=== PATIENT | female | born 1990 | race Caucasian/White ===

== ENCOUNTER 2017-06-27 14:40 | Outpatient (CLI) | payer BC, MEDICAID ==
[2017-06-27 15:09] LABS: APPEARANCE,URINE CLOUDY; BILIRUBIN,URINE NEGATIVE (NEGATIVE); COLOR,URINE YELLOW; GLUCOSE, URINE NEGATIVE (NEGATIVE); KETONES,URINE NEGATIVE (NEGATIVE); LEUKOCYTE ESTERASE,URINE NEGATIVE (NEGATIVE); NITRITE,URINE NEGATIVE (NEGATIVE); PROTEIN,URINE NEGATIVE (NEGATIVE); URINE SPECIFIC GRAVITY 1.009; UROBILINOGEN,URINE NEGATIVE mg/dL (<2.0)
[2017-06-27 15:25] LABS: URINE AMPHETAMINES SCREEN NEGATIVE; URINE BARBITURATES SCREEN NEGATIVE; URINE BENZODIAZEPINES SCREEN NEGATIVE; URINE COCAINE SCREEN NEGATIVE; URINE MARIJUANA (THC) SCREEN NEGATIVE; URINE METHADONE SCREEN NEGATIVE
[2017-06-27 15:29] LABS: ABSOLUTE BASOPHILS # (AUTO) 0.1 10^3/uL (0.0-0.2); ABSOLUTE EOSINOPHILS # (AUTO) 0.1 10^3/uL (0.0-0.6); ABSOLUTE LYMPHOCYTES (AUTO) 2.4 10^3/uL (0.5-4.7); ABSOLUTE MONOCYTES (AUTO) 0.8 10^3/uL (0.1-1.4); ABSOLUTE NEUT (AUTO) 10.1 10^3/uL (1.7-8.2); BASOPHILS % (AUTO) 0.6 % (0-2); EOSINOPHILS % (AUTO) 0.6 % (0-6); HEMATOCRIT 35.2 % (36.0-47.0); HEMOGLOBIN 11.9 g/dL (12.0-15.5); MEAN CORPUSCULAR HEMOGLOBIN 26.9 pg (27.0-33.4); MEAN CORPUSCULAR HGB CONC 33.7 g/dL (32.0-36.0); MEAN CORPUSCULAR VOLUME 80 fl (80-97); MONOCYTES % (AUTO) 6.2 % (3-13); PLATELET COUNT 245 10^3/uL (150-450); RED BLOOD COUNT 4.42 10^6/uL (3.72-5.28); RED CELL DISTRIBUTION WIDTH 13.7 % (11.5-14.0); SEGMENTED NEUTROPHILS % (AUTO) 74.6 % (42-78); TOTAL CELLS COUNTED % (AUTO) 100 %; WHITE BLOOD COUNT 13.5 10^3/uL (4.0-10.5)
[2017-06-27 15:30] LABS: UR PRO/CREAT RATIO RESULT 0.3 mg/mg (0.0-0.2); URINE CREATININE 56.9 mg/dL (16-327); URINE PROTEIN 16.2 mg/dL (<12)
[2017-06-27 15:41] LABS: URINE PHENCYCLIDINE SCREEN NEGATIVE
[2017-06-27 15:41] LABS: ALANINE AMINOTRANSFERASE 22 U/L (9-52); ALBUMIN 3.6 g/dL (3.5-5.0); ALKALINE PHOSPHATASE 98 U/L (38-126); ANION GAP 12 (5-19); ASPARTATE AMINO TRANSFERASE 16 U/L (14-36); BILIRUBIN,DIRECT 0.1 mg/dL (0.0-0.4); BILIRUBIN,TOTAL 0.1 mg/dL (0.2-1.3); BLOOD UREA NITROGEN 10 mg/dL (7-20); CALCIUM 10.1 mg/dL (8.4-10.2); CARBON DIOXIDE 20 mmol/L (22-30); CHLORIDE 106 mmol/L (98-107); GLUCOSE 83 mg/dL (75-110); LDH 357 U/L (313-618); POTASSIUM 4.6 mmol/L (3.6-5.0); SODIUM 138.2 mmol/L (137-145); TOTAL PROTEIN 6.5 g/dL (6.3-8.2); URIC ACID 5.3 mg/dL (2.5-6.2)
[2017-06-27] MEDS ORDERED: ACETAMINOPHEN 325 MG TABLET PO ONE (15:58)
[2017-06-27] MEDS ORDERED: ACETAMINOPHEN 325 MG TABLET ONE ×2 (15:58→16:04)
--- NOTE | 2017-06-27 16:20 | Non Stress Test Report ---
Non Stress Test Datetime Report Generated by CPN: 06/27/2017 16:20 DEMOGRAPHIC EGA NST: 33.1 INDICATION Indication for Study: Chronic Hypertension; Ordered by Provider VITAL SIGNS Temperature - NST: 98.8 Pulse - NST: 101 RESP - NST: 14 NBPSYS NST: 147 NBPDIA NST: 74 MONITORING Monitor Explained: Monitor Explained; Test Explained; Patient Verbalized Understanding Time on Monitor: 06/27/2017 14:56 Time off Monitor: 06/27/2017 16:13 NST Duration: 77 NST INTERVENTIONS NST Interventions: PO Hydration; Reposition Patient Physician Notified NST: Dr Naylor BABY A: [id number] BABY A Movement : Present Contraction Frequency : none FHR Baseline : 130 Accelerations : 15X15 Decelerations : None Variability : Moderate 6-25bpm NST Review: Meets Criteria for Reactive NST NST Review and Verified By : Garret Juarez RN NST Results: Reactive NST REPORT Report Trigger: Send Report
[2017-06-27] MEDS ORDERED: BUTALB/ACETAMINOPHEN/CAFFEINE 1 TAB EACH PO ONE (17:00)
== END 2017-06-27 17:09 | disposition home or self-care (01) ==
LOC: LC 14:40
PROVIDERS: ATTEND Student in an Organized Health Care Education/Training Program
PROC: 4A1HXCZ Monitoring of Products of Conception, Cardiac Rate, External Approach (ICD-10-PCS; principal; 2017-06-27)
DX: O10.913 Unspecified pre-existing hypertension complicating pregnancy, third trimester (principal); Z3A.33 33 weeks gestation of pregnancy
CPT/HCPCS: 36415; 59025; 80053; 80307; 81001; 82570; 83615; 84156; 84550; 85025

== ENCOUNTER 2017-07-04 09:50 | Outpatient (CLI) | payer BC, MEDICAID ==
[2017-07-04 10:29] LABS: APPEARANCE,URINE SLIGHTLY-CLOUDY; BILIRUBIN,URINE NEGATIVE (NEGATIVE); CALCIUM OXALATE CRYSTALS,URINE MODERATE /HPF; COLOR,URINE YELLOW; GLUCOSE, URINE NEGATIVE (NEGATIVE); KETONES,URINE NEGATIVE (NEGATIVE); LEUKOCYTE ESTERASE,URINE NEGATIVE (NEGATIVE); NITRITE,URINE NEGATIVE (NEGATIVE); PROTEIN,URINE 30 mg/dL (NEGATIVE); URINE SPECIFIC GRAVITY 1.025
--- NOTE | 2017-07-04 10:45 | Non Stress Test Report ---
Non Stress Test Datetime Report Generated by CPN: 07/04/2017 10:45 DEMOGRAPHIC EGA NST: 34.1 INDICATION Indication for Study: Chronic Hypertension Indication for Study (NST) Other: Pre-E work/up, non reactive nst in office MONITORING Monitor Explained: Monitor Explained; Test Explained; Patient Verbalized Understanding Time on Monitor: 07/04/2017 10:13 NST INTERVENTIONS NST Interventions: PO Hydration Physician Notified NST: A Duenas CNM BABY A: [id number] BABY A Movement : Present Contraction Frequency : x0 FHR Baseline : 125 Accelerations : 15X15 Decelerations : None Variability : Moderate 6-25bpm NST Review: Meets Criteria for Reactive NST NST Review and Verified By : Dedra Camp RNC NST Results: Reactive NST REPORT Report Trigger: Send Report
[2017-07-04 10:52] LABS: URINE AMPHETAMINES SCREEN NEGATIVE; URINE BARBITURATES SCREEN NEGATIVE; URINE BENZODIAZEPINES SCREEN NEGATIVE; URINE COCAINE SCREEN NEGATIVE; URINE MARIJUANA (THC) SCREEN NEGATIVE; URINE METHADONE SCREEN NEGATIVE; URINE PHENCYCLIDINE SCREEN NEGATIVE
[2017-07-04 10:56] LABS: UR PRO/CREAT RATIO RESULT 0.1 mg/mg (0.0-0.2); URINE CREATININE 202.2 mg/dL (16-327)
[2017-07-04 11:31] LABS: ABSOLUTE EOSINOPHILS # (AUTO) 0.1 10^3/uL (0.0-0.6); ABSOLUTE MONOCYTES (AUTO) 0.7 10^3/uL (0.1-1.4); ABSOLUTE NEUT (AUTO) 9.1 10^3/uL (1.7-8.2); BASOPHILS % (AUTO) 0.3 % (0-2); EOSINOPHILS % (AUTO) 0.6 % (0-6); HEMATOCRIT 35.3 % (36.0-47.0); HEMOGLOBIN 11.7 g/dL (12.0-15.5); LYMPHOCYTES % (AUTO) 17.1 % (13-45); MEAN CORPUSCULAR HEMOGLOBIN 26.5 pg (27.0-33.4); MEAN CORPUSCULAR HGB CONC 33.1 g/dL (32.0-36.0); MEAN CORPUSCULAR VOLUME 80 fl (80-97); MONOCYTES % (AUTO) 5.7 % (3-13); PLATELET COUNT 246 10^3/uL (150-450); RED BLOOD COUNT 4.41 10^6/uL (3.72-5.28); RED CELL DISTRIBUTION WIDTH 13.6 % (11.5-14.0); SEGMENTED NEUTROPHILS % (AUTO) 76.3 % (42-78); TOTAL CELLS COUNTED % (AUTO) 100 %
[2017-07-04 11:50] LABS: ALANINE AMINOTRANSFERASE 25 U/L (9-52); ALBUMIN 3.6 g/dL (3.5-5.0); ALKALINE PHOSPHATASE 102 U/L (38-126); ANION GAP 12 (5-19); ASPARTATE AMINO TRANSFERASE 15 U/L (14-36); BLOOD UREA NITROGEN 8 mg/dL (7-20); CARBON DIOXIDE 23 mmol/L (22-30); CHLORIDE 104 mmol/L (98-107); GLUCOSE 65 mg/dL (75-110); LDH 336 U/L (313-618); POTASSIUM 4.8 mmol/L (3.6-5.0); SODIUM 138.8 mmol/L (137-145); TOTAL PROTEIN 6.4 g/dL (6.3-8.2); URIC ACID 6.2 mg/dL (2.5-6.2)
[2017-07-04 11:53] LABS: BILIRUBIN,TOTAL < 0.1 mg/dL (0.2-1.3)
== END 2017-07-04 12:02 | disposition home or self-care (01) ==
LOC: LC 09:50
PROVIDERS: ATTEND Obstetrics & Gynecology
PROC: 4A1HXCZ Monitoring of Products of Conception, Cardiac Rate, External Approach (ICD-10-PCS; principal; 2017-07-04)
DX: O10.913 Unspecified pre-existing hypertension complicating pregnancy, third trimester (principal); Z3A.34 34 weeks gestation of pregnancy
CPT/HCPCS: 36415; 59025; 80053; 80307; 81001; 82570; 83615; 84156; 84550; 85025

== ENCOUNTER 2017-07-11 09:25 | Outpatient (CLI) | payer BC, MEDICAID ==
[2017-07-11 10:10] LABS: APPEARANCE,URINE SLIGHTLY-CLOUDY; BILIRUBIN,URINE NEGATIVE (NEGATIVE); COLOR,URINE YELLOW; GLUCOSE, URINE NEGATIVE (NEGATIVE); KETONES,URINE NEGATIVE (NEGATIVE); LEUKOCYTE ESTERASE,URINE NEGATIVE (NEGATIVE); NITRITE,URINE NEGATIVE (NEGATIVE); PROTEIN,URINE 30 mg/dL (NEGATIVE); UROBILINOGEN,URINE NEGATIVE mg/dL (<2.0)
[2017-07-11 10:22] LABS: URINE AMPHETAMINES SCREEN NEGATIVE; URINE BARBITURATES SCREEN NEGATIVE; URINE BENZODIAZEPINES SCREEN NEGATIVE; URINE COCAINE SCREEN NEGATIVE; URINE MARIJUANA (THC) SCREEN NEGATIVE; URINE METHADONE SCREEN NEGATIVE; URINE PHENCYCLIDINE SCREEN NEGATIVE
[2017-07-11 10:28] LABS: UR PRO/CREAT RATIO RESULT 0.1 mg/mg (0.0-0.2); URINE CREATININE 149.2 mg/dL (16-327); URINE PROTEIN 13.2 mg/dL (<12)
[2017-07-11] MEDS ORDERED: OXYTOCIN/NORMAL SALINE 0 UNIT/0 ML RTUINJ ONE (10:39)
[2017-07-11] MEDS ORDERED: PROMETHAZINE HCL INJ 25 MG/1 ML VIAL ONE (10:39)
[2017-07-11] MEDS ORDERED: NALBUPHINE HCL INJ 10 MG/1 ML AMPULE ONE (10:39)
[2017-07-11 10:48] LABS: ABSOLUTE LYMPHOCYTES (AUTO) 2.1 10^3/uL (0.5-4.7); ABSOLUTE MONOCYTES (AUTO) 0.7 10^3/uL (0.1-1.4); ABSOLUTE NEUT (AUTO) 9.4 10^3/uL (1.7-8.2); BASOPHILS % (AUTO) 0.3 % (0-2); EOSINOPHILS % (AUTO) 0.4 % (0-6); HEMATOCRIT 34.2 % (36.0-47.0); HEMOGLOBIN 11.4 g/dL (12.0-15.5); LYMPHOCYTES % (AUTO) 16.7 % (13-45); MEAN CORPUSCULAR HEMOGLOBIN 26.7 pg (27.0-33.4); MEAN CORPUSCULAR HGB CONC 33.2 g/dL (32.0-36.0); MEAN CORPUSCULAR VOLUME 80 fl (80-97); MONOCYTES % (AUTO) 5.9 % (3-13); PLATELET COUNT 239 10^3/uL (150-450); RED BLOOD COUNT 4.25 10^6/uL (3.72-5.28); RED CELL DISTRIBUTION WIDTH 13.9 % (11.5-14.0); SEGMENTED NEUTROPHILS % (AUTO) 76.7 % (42-78); TOTAL CELLS COUNTED % (AUTO) 100 %; WHITE BLOOD COUNT 12.3 10^3/uL (4.0-10.5)
[2017-07-11 11:06] LABS: ALANINE AMINOTRANSFERASE 15 U/L (9-52); ALBUMIN 3.4 g/dL (3.5-5.0); ALKALINE PHOSPHATASE 93 U/L (38-126); ANION GAP 10 (5-19); ASPARTATE AMINO TRANSFERASE 13 U/L (14-36); BLOOD UREA NITROGEN 13 mg/dL (7-20); CALCIUM 9.8 mg/dL (8.4-10.2); CARBON DIOXIDE 20 mmol/L (22-30); CHLORIDE 107 mmol/L (98-107); GLUCOSE 80 mg/dL (75-110); LDH 304 U/L (313-618); POTASSIUM 4.3 mmol/L (3.6-5.0); SODIUM 137.4 mmol/L (137-145); TOTAL PROTEIN 6.1 g/dL (6.3-8.2); URIC ACID 6.5 mg/dL (2.5-6.2)
[2017-07-11 11:08] LABS: BILIRUBIN,TOTAL < 0.1 mg/dL (0.2-1.3)
--- NOTE | 2017-07-11 11:17 | Non Stress Test Report ---
Non Stress Test Datetime Report Generated by CPN: 07/11/2017 11:17 DEMOGRAPHIC EGA NST: 35.1 INDICATION Indication for Study: Ordered by Provider Indication for Study (NST) Other: Pre-e workup MONITORING Monitor Explained: Monitor Explained; Test Explained; Patient Verbalized Understanding Time on Monitor: 07/11/2017 09:53 Time off Monitor: 07/11/2017 10:51 NST Duration: 58 NST INTERVENTIONS NST Interventions: PO Hydration Physician Notified NST: J Nicholas CNM BABY A: [id number] BABY A Movement : Present Contraction Frequency : 0 FHR Baseline : 130 Accelerations : 15X15 Decelerations : None Variability : Moderate 6-25bpm NST Review: Meets Criteria for Reactive NST NST Review and Verified By : Lopez Dean RN NST Results: Reactive NST REPORT Report Trigger: Send Report
== END 2017-07-11 11:14 | disposition home or self-care (01) ==
LOC: LC 09:25
PROVIDERS: ATTEND Obstetrics & Gynecology
PROC: 4A1HXCZ Monitoring of Products of Conception, Cardiac Rate, External Approach (ICD-10-PCS; principal; 2017-07-11)
DX: O16.3 Unspecified maternal hypertension, third trimester (principal); Z3A.35 35 weeks gestation of pregnancy
CPT/HCPCS: 36415; 59025; 80053; 80307; 81001; 82570; 83615; 84156; 84550; 85025; J2300; J2550; J2590

== ENCOUNTER 2017-07-13 11:56 | Observation (INO) | payer BC, MEDICAID ==
[2017-07-13 12:39] LABS: APPEARANCE,URINE CLEAR; BILIRUBIN,URINE NEGATIVE (NEGATIVE); COLOR,URINE STRAW; GLUCOSE, URINE NEGATIVE (NEGATIVE); KETONES,URINE NEGATIVE (NEGATIVE); LEUKOCYTE ESTERASE,URINE NEGATIVE (NEGATIVE); NITRITE,URINE NEGATIVE (NEGATIVE); PROTEIN,URINE NEGATIVE (NEGATIVE); URINE SPECIFIC GRAVITY 1.005; UROBILINOGEN,URINE NEGATIVE mg/dL (<2.0)
--- NOTE | 2017-07-13 12:39 | Non Stress Test Report ---
Non Stress Test Datetime Report Generated by CPN: 07/13/2017 12:39 DEMOGRAPHIC EGA NST: 36.2 INDICATION Indication for Study: Ordered by Provider MONITORING Monitor Explained: Monitor Explained; Test Explained; Patient Verbalized Understanding Time on Monitor: 07/13/2017 12:08 Time off Monitor: 07/13/2017 12:35 NST Duration: 27 NST INTERVENTIONS NST Interventions: PO Hydration; Reposition Patient Physician Notified NST: H.Luis, CNM BABY A: [id number] BABY A Movement : Present Contraction Frequency : None FHR Baseline : 130 Accelerations : 15X15 Decelerations : None Variability : Moderate 6-25bpm NST Review: Meets Criteria for Reactive NST NST Review and Verified By : Cayden Castro RNC NST Results: Reactive NST REPORT Report Trigger: Send Report
[2017-07-13 13:01] LABS: URINE AMPHETAMINES SCREEN NEGATIVE; URINE BARBITURATES SCREEN NEGATIVE; URINE BENZODIAZEPINES SCREEN NEGATIVE; URINE COCAINE SCREEN NEGATIVE; URINE MARIJUANA (THC) SCREEN NEGATIVE; URINE METHADONE SCREEN NEGATIVE; URINE PHENCYCLIDINE SCREEN NEGATIVE
[2017-07-13 13:02] LABS: UR PRO/CREAT RATIO RESULT 0.4 mg/mg (0.0-0.2); URINE PROTEIN 16.7 mg/dL (<12)
[2017-07-13 13:11] LABS: ABSOLUTE EOSINOPHILS # (AUTO) 0.1 10^3/uL (0.0-0.6); ABSOLUTE LYMPHOCYTES (AUTO) 1.9 10^3/uL (0.5-4.7); ABSOLUTE MONOCYTES (AUTO) 0.9 10^3/uL (0.1-1.4); ABSOLUTE NEUT (AUTO) 8.6 10^3/uL (1.7-8.2); BASOPHILS % (AUTO) 0.3 % (0-2); EOSINOPHILS % (AUTO) 0.6 % (0-6); HEMATOCRIT 36.4 % (36.0-47.0); HEMOGLOBIN 11.9 g/dL (12.0-15.5); LYMPHOCYTES % (AUTO) 16.5 % (13-45); MEAN CORPUSCULAR HEMOGLOBIN 26.2 pg (27.0-33.4); MEAN CORPUSCULAR HGB CONC 32.6 g/dL (32.0-36.0); MEAN CORPUSCULAR VOLUME 80 fl (80-97); MONOCYTES % (AUTO) 7.5 % (3-13); PLATELET COUNT 233 10^3/uL (150-450); RED BLOOD COUNT 4.53 10^6/uL (3.72-5.28); RED CELL DISTRIBUTION WIDTH 14.1 % (11.5-14.0); SEGMENTED NEUTROPHILS % (AUTO) 75.1 % (42-78); TOTAL CELLS COUNTED % (AUTO) 100 %; WHITE BLOOD COUNT 11.4 10^3/uL (4.0-10.5)
[2017-07-13 13:35] LABS: ALANINE AMINOTRANSFERASE 20 U/L (9-52); ALBUMIN 3.4 g/dL (3.5-5.0); ALKALINE PHOSPHATASE 92 U/L (38-126); ANION GAP 8 (5-19); ASPARTATE AMINO TRANSFERASE 14 U/L (14-36); BILIRUBIN,DIRECT 0.2 mg/dL (0.0-0.4); BILIRUBIN,TOTAL 0.2 mg/dL (0.2-1.3); BLOOD UREA NITROGEN 12 mg/dL (7-20); CALCIUM 10.3 mg/dL (8.4-10.2); CARBON DIOXIDE 22 mmol/L (22-30); CHLORIDE 108 mmol/L (98-107); GLUCOSE 76 mg/dL (75-110); LDH 314 U/L (313-618); POTASSIUM 4.6 mmol/L (3.6-5.0); SODIUM 137.8 mmol/L (137-145); TOTAL PROTEIN 6.5 g/dL (6.3-8.2); URIC ACID 6.8 mg/dL (2.5-6.2)
[2017-07-13] MEDS ORDERED: ZOLPIDEM TARTRATE 5 MG TABLET PO PRN (14:05)
--- NOTE | 2017-07-13 14:10 | Admission Physical ---
Datetime Report Generated by CPN: 07/13/2017 14:09 CURRENT ADMISSION Hx Assessment: The History has been Reviewed and is Current Chief Complaint: Signs/Symptoms Gestational HTN Indication for Induction: Chronic Primary/Essential HTN; PreEclampsia Indication for Induction: Observation/Evaluation Admit Plan: Observation/Evaluation ALLERGIES Medication Allergies: No Medication Allergies: Latex, Natural Rubber (07/11/2017) Latex: Latex Allergies OBSTETRICAL HISTORY EDC: 08/08/2017 00:00 : 1 Para: 0 Term: 0 : 0 SAB: 0 IAB: 0 Livin Gestational Diabetes: No Rh Sensitization: No Incompetent Cervix: No CALI: No Infertility: No ART Treatment: No Uterine Anomaly: No IUGR: No Hx Previous C/S: No Macrosomia: No Hx Loss/Stillborn: No PIH: Unknown Hx : No Placenta Previa/Abruption: No Depression/PP Depression: No PTL/PROM: No Post Hemorrhage: No Current Procedures: Ultrasound Obstetrical History Comments: G1 - Current SEE RECORDS Alcohol: No Marijuana : No Cocaine: No Other Illicit Drugs: No Cigarettes: Never Smoker. 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 Heart Disease: No Hosp/Surgery: No Autoimmune Disorder: No Anesthetic Complications: No Kidney Disease: No Abnormal Pap Smear: No Neuro/Epilepsy: No Psychiatric Disorders: No Other Medical Diseases: No Hepatitis/Liver Disease: No Significant Family History: No Varicosities/Phlebitis: No Trauma/Violence : No Thyroid Dysfunction: No INFECTIOUS HISTORY Gonorrhea: No Genital Herpes: No Chlamydia: No Tuberculosis: No Syphilis: No Hepatitis: No HIV/AIDS Exposure: No Rash or Viral Illness: No HPV: No PHYSICAL EXAM General: Normal HEENT: Normal Neurologic: Normal Thyroid: Normal Heart: Normal Lungs: Normal Breast: Normal Back: Normal Abdomen: Normal Genitourinary Exam: Normal Extremities: Normal DTRs: Normal Pelvic Type: Adequate Vital Signs: Reviewed Details Vital Signs: bp's elevated in the office VAGINAL EXAM Contraction Comments: rare MEMBRANES Membranes: Intact FETUS A EGA: 36.2 Monitoring: External US FHR- Baseline: 135 Variability: Moderate 6-25bpm Accelerations: 15X15 Decelerations: None FHR Category: Category I Admit Comment: Pt presented to the office for wero today with c/o headache not responsive to tylenol, questionable visual changes, ringing in the ears, and nausea, vomiting today. BP in the office has been elevated last 2 weeks. states active fetus, denies ctx, vag bleeding, or lof. Hx chtn no meds. Pt to be 23 hour obs and do 24 hour urine Protein creat ratio today 0.4, Reg diet Ambien for sleep PLANS FOR LABOR AND DELIVERY Labor and Delivery: None Pain Management: Natural Feeding Preference: Both Benefit of Breast Feed Discussed: Yes Circumcision: N/A INFORMED CONSENT Assignment: Moe Macias MD Signature: with User ID: [email or web address] : with User ID: [email or web address]
[2017-07-13] MEDS ORDERED: PROMETHAZINE HCL INJ 25 MG/1 ML VIAL IV ONE (14:18)
[2017-07-13] MEDS ORDERED: PROMETHAZINE HCL INJ 25 MG/1 ML VIAL ONE (14:24)
[2017-07-14 15:21] LABS: ABSOLUTE BASOPHILS # (AUTO) 0.1 10^3/uL (0.0-0.2); ABSOLUTE EOSINOPHILS # (AUTO) 0.1 10^3/uL (0.0-0.6); ABSOLUTE LYMPHOCYTES (AUTO) 2.3 10^3/uL (0.5-4.7); ABSOLUTE MONOCYTES (AUTO) 0.6 10^3/uL (0.1-1.4); ABSOLUTE NEUT (AUTO) 8.6 10^3/uL (1.7-8.2); BASOPHILS % (AUTO) 0.8 % (0-2); EOSINOPHILS % (AUTO) 0.7 % (0-6); HEMATOCRIT 35.9 % (36.0-47.0); HEMOGLOBIN 11.8 g/dL (12.0-15.5); LYMPHOCYTES % (AUTO) 19.7 % (13-45); MEAN CORPUSCULAR HEMOGLOBIN 26.5 pg (27.0-33.4); MEAN CORPUSCULAR HGB CONC 32.7 g/dL (32.0-36.0); MEAN CORPUSCULAR VOLUME 81 fl (80-97); MONOCYTES % (AUTO) 5.4 % (3-13); PLATELET COUNT 224 10^3/uL (150-450); RED BLOOD COUNT 4.44 10^6/uL (3.72-5.28); RED CELL DISTRIBUTION WIDTH 14.1 % (11.5-14.0); SEGMENTED NEUTROPHILS % (AUTO) 73.4 % (42-78); TOTAL CELLS COUNTED % (AUTO) 100 %; WHITE BLOOD COUNT 11.8 10^3/uL (4.0-10.5)
[2017-07-14 15:36] LABS: ALANINE AMINOTRANSFERASE 18 U/L (9-52); ALBUMIN 3.4 g/dL (3.5-5.0); ALKALINE PHOSPHATASE 88 U/L (38-126); ANION GAP 10 (5-19); ASPARTATE AMINO TRANSFERASE 14 U/L (14-36); BILIRUBIN,DIRECT 0.2 mg/dL (0.0-0.4); BILIRUBIN,TOTAL 0.2 mg/dL (0.2-1.3); BLOOD UREA NITROGEN 16 mg/dL (7-20); CALCIUM 10.1 mg/dL (8.4-10.2); CARBON DIOXIDE 20 mmol/L (22-30); CHLORIDE 108 mmol/L (98-107); GLUCOSE 113 mg/dL (75-110); LDH 312 U/L (313-618); POTASSIUM 4.4 mmol/L (3.6-5.0); SODIUM 137.7 mmol/L (137-145); TOTAL PROTEIN 6.5 g/dL (6.3-8.2); URIC ACID 7.6 mg/dL (2.5-6.2)
[2017-07-14 16:17] LABS: 24 HOUR URINE PROTEIN RESULT 95 mg/day (42-225)
[2017-07-14 16:29] VITALS: BP 141/91
--- NOTE | 2017-07-14 17:30 | PDOC DISCHARGE SUMMARY ---
General - Admit/Disc Date/PCP Admission Date/Primary Care Provider: 07/13/17 14:00 KAHLIL MEZA MD Discharge Date: 07/14/17 - Discharge Diagnosis (1) Chronic hypertension Is this a current diagnosis for this admission?: Yes - Additional Information Home Medications: Aspirin [Ecotrin] 1 tab PO DAILY 06/27/17 Pnv,Calcium 72/Iron/Folic Acid [ Plus Tablet] 1 tab PO DAILY 06/27/17 History of Present Illness Patient complains of: denies STOCKTON/RUQ pain/visual changes. BP stable, mild range History of Present Illness: EMMA SOLER is a 27 year old female Physical Exam - Physical Exam Vital Signs: Temp Pulse Resp BP Pulse Ox 98.3 F 72 16 141/91 H 97 07/14/17 16:00 07/14/17 16:00 07/14/17 16:00 07/14/17 16:00 07/14/17 16:00 Intake & Output 07/13/17 07/14/17 07/15/17 06:59 06:59 06:59 Intake Total 600 240 Output Total 450 Balance 600 -210 Weight 120.2 kg Result Laboratory Results: 07/14/17 15:05 07/14/17 15:05 07/14/17 07/14/17 07/14/17 15:05 15:05 15:25 WBC 11.8 H RBC 4.44 Hgb 11.8 L Hct 35.9 L MCV 81 MCH 26.5 L MCHC 32.7 RDW 14.1 H Plt Count 224 Seg Neutrophils % 73.4 Lymphocytes % 19.7 Monocytes % 5.4 Eosinophils % 0.7 Basophils % 0.8 Absolute Neutrophils 8.6 H Absolute Lymphocytes 2.3 Absolute Monocytes 0.6 Absolute Eosinophils 0.1 Absolute Basophils 0.1 Sodium 137.7 Potassium 4.4 Chloride 108 H Carbon Dioxide 20 L Anion Gap 10 BUN 16 Creatinine 0.65 Est GFR ( Amer) > 60 Est GFR (Non-Af Amer) > 60 Glucose 113 H Uric Acid 7.6 H Calcium 10.1 Total Bilirubin 0.2 AST 14 ALT 18 Alkaline Phosphatase 88 Total Protein 6.5 Albumin 3.4 L Ur 24 Hour Volume 1060 Ur Total Protein 24 Hr 95 Plan Discharge Plan: discharge today. c/w dr smith. YOAVNI/NST on monday in office. then IOL . return earlier if sx pre-e. Time Spent: Less than 30 Minutes
== END 2017-07-14 18:00 | disposition home or self-care (01) ==
LOC: LC 11:56 → LR 14:00 → INTOOBSV 14:00 → 2S 15:29
PROVIDERS: ADMIT Obstetrics & Gynecology; ATTEND Obstetrics & Gynecology
PROC: 4A0HXCZ Measurement of Products of Conception, Cardiac Rate, External Approach (ICD-10-PCS; principal; 2017-07-13)
DX: O16.3 Unspecified maternal hypertension, third trimester (principal); O26.893 Other specified pregnancy related conditions, third trimester; R11.2 Nausea with vomiting, unspecified; H93.13 Tinnitus, bilateral; Z3A.36 36 weeks gestation of pregnancy
CPT/HCPCS: 59025; 36415 ×2; 83615 ×2; 84156 ×2; 84550 ×2; 82570; 85025 ×2; 81005; 80053 ×2; 80307; J2550

== ENCOUNTER 2017-07-18 17:54 | Inpatient (IN) | payer BC, MEDICAID ==
[2017-07-18] MEDS ORDERED: RINGERS SOLUTION,LACTATED 300 ML IV ONE (17:58)
[2017-07-18] MEDS ORDERED: DINOPROSTONE 10 MG VAGINAL INSERT.SR PV PRN (17:58)
[2017-07-18] MEDS ORDERED: OXYTOCIN/NORMAL SALINE 20 UNIT/1,000 ML RTUINJ IV PRN (17:58)
[2017-07-18 18:30] LABS: ABSOLUTE BASOPHILS # (AUTO) 0.1 10^3/uL (0.0-0.2); ABSOLUTE EOSINOPHILS # (AUTO) 0.1 10^3/uL (0.0-0.6); ABSOLUTE LYMPHOCYTES (AUTO) 2.6 10^3/uL (0.5-4.7); ABSOLUTE MONOCYTES (AUTO) 0.7 10^3/uL (0.1-1.4); BASOPHILS % (AUTO) 0.6 % (0-2); EOSINOPHILS % (AUTO) 0.7 % (0-6); HEMATOCRIT 36.5 % (36.0-47.0); HEMOGLOBIN 12.3 g/dL (12.0-15.5); MEAN CORPUSCULAR HEMOGLOBIN 26.8 pg (27.0-33.4); MEAN CORPUSCULAR HGB CONC 33.6 g/dL (32.0-36.0); MEAN CORPUSCULAR VOLUME 80 fl (80-97); MONOCYTES % (AUTO) 5.7 % (3-13); PLATELET COUNT 232 10^3/uL (150-450); RED BLOOD COUNT 4.57 10^6/uL (3.72-5.28); RED CELL DISTRIBUTION WIDTH 14.2 % (11.5-14.0); TOTAL CELLS COUNTED % (AUTO) 100 %; WHITE BLOOD COUNT 12.5 10^3/uL (4.0-10.5)
[2017-07-18 18:43] LABS: ALANINE AMINOTRANSFERASE 23 U/L (9-52); ALBUMIN 3.5 g/dL (3.5-5.0); ALKALINE PHOSPHATASE 103 U/L (38-126); ANION GAP 11 (5-19); ASPARTATE AMINO TRANSFERASE 15 U/L (14-36); BILIRUBIN,DIRECT 0.2 mg/dL (0.0-0.4); BILIRUBIN,TOTAL 0.2 mg/dL (0.2-1.3); BLOOD UREA NITROGEN 13 mg/dL (7-20); CALCIUM 10.4 mg/dL (8.4-10.2); CARBON DIOXIDE 20 mmol/L (22-30); CHLORIDE 108 mmol/L (98-107); GLUCOSE 94 mg/dL (75-110); LDH 390 U/L (313-618); POTASSIUM 4.3 mmol/L (3.6-5.0); SODIUM 138.9 mmol/L (137-145); TOTAL PROTEIN 6.8 g/dL (6.3-8.2); URIC ACID 6.7 mg/dL (2.5-6.2)
[2017-07-18] MEDS ORDERED: DINOPROSTONE 10 MG VAGINAL INSERT.SR ONE (18:57)
[2017-07-18] MEDS: RINGERS SOLUTION,LACTATED 1,000 ML IV PRN (19:02)
[2017-07-18 19:12] LABS: APPEARANCE,URINE CLEAR; BILIRUBIN,URINE NEGATIVE (NEGATIVE); COLOR,URINE STRAW; GLUCOSE, URINE NEGATIVE (NEGATIVE); KETONES,URINE NEGATIVE (NEGATIVE); LEUKOCYTE ESTERASE,URINE NEGATIVE (NEGATIVE); NITRITE,URINE NEGATIVE (NEGATIVE); PROTEIN,URINE NEGATIVE (NEGATIVE); URINE SPECIFIC GRAVITY 1.005; UROBILINOGEN,URINE NEGATIVE mg/dL (<2.0)
[2017-07-18 19:23] LABS: URINE AMPHETAMINES SCREEN NEGATIVE; URINE BARBITURATES SCREEN NEGATIVE; URINE BENZODIAZEPINES SCREEN NEGATIVE; URINE COCAINE SCREEN NEGATIVE; URINE MARIJUANA (THC) SCREEN NEGATIVE; URINE METHADONE SCREEN NEGATIVE; URINE PHENCYCLIDINE SCREEN NEGATIVE
--- NOTE | 2017-07-18 19:26 | Admission Physical ---
Datetime Report Generated by CPN: 07/18/2017 19:26 CURRENT ADMISSION Hx Assessment: The History has been Reviewed and is Current Chief Complaint: Other Chief Complaint Other: Induction Indication for Induction: Chronic Secondary HTN (Specify Cause) Admit Impression : Term, Intrauterine ; Induction of Labor Admit Plan: Admit to Unit; Initiate Labor Induction Protocol ALLERGIES Medication Allergies: No Medication Allergies: Latex, Natural Rubber (07/18/2017) Latex: Latex Allergies OBSTETRICAL HISTORY EDC: 08/08/2017 00:00 : 1 Para: 0 Term: 0 : 0 SAB: 0 IAB: 0 Livin Gestational Diabetes: No Rh Sensitization: No Incompetent Cervix: No CALI: No Infertility: No ART Treatment: No Uterine Anomaly: No IUGR: No Hx Previous C/S: No Macrosomia: No Hx Loss/Stillborn: No PIH: Unknown Hx : No Placenta Previa/Abruption: No Depression/PP Depression: No PTL/PROM: No Post Hemorrhage: No Current Procedures: Ultrasound Obstetrical History Comments: G1 - Current SEE RECORDS Alcohol: No Marijuana : No Cocaine: No Other Illicit Drugs: No Cigarettes: Never Smoker. 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 Heart Disease: No Hosp/Surgery: No Autoimmune Disorder: No Anesthetic Complications: No Kidney Disease: No Abnormal Pap Smear: No Neuro/Epilepsy: No Psychiatric Disorders: No Other Medical Diseases: No Hepatitis/Liver Disease: No Significant Family History: No Varicosities/Phlebitis: No Trauma/Violence : No Thyroid Dysfunction: No INFECTIOUS HISTORY Gonorrhea: No Genital Herpes: No Chlamydia: No Tuberculosis: No Syphilis: No Hepatitis: No HIV/AIDS Exposure: No Rash or Viral Illness: No HPV: No PHYSICAL EXAM General: Normal HEENT: Normal Neurologic: Normal Thyroid: Normal Heart: Normal Lungs: Normal Breast: Deferred Back: Normal Abdomen: Normal Genitourinary Exam: Normal Extremities: Normal DTRs: Normal Pelvic Type: Adequate Vital Signs: Reviewed Details Vital Signs: bp's elevated in the office VAGINAL EXAM Dilatation: 2 Contraction Comments: rare MEMBRANES Pooling: Negative Membranes: Intact FETUS A EGA: 37.0 Monitoring: External US FHR- Baseline: 120 Variability: Moderate 6-25bpm Accelerations: 10X10 Decelerations: None FHR Category: Category I Admit Comment: Plan cervadil PLANS FOR LABOR AND DELIVERY Labor and Delivery: None Pain Management: Natural; Epidural Feeding Preference: Both Benefit of Breast Feed Discussed: Yes Circumcision: N/A INFORMED CONSENT Assignment: Moe Macias MD Signature: with User ID: Emily : with User ID: Emily
--- NOTE | 2017-07-18 21:36 | Warning Signs in Babies ---
VOD Warning Signs Datetime Report Generated by [facility]: 07/18/2017 21:35 VOD#608 -Warning Signs in Babies: Viewed with Parent(s)/Family (06/27/2017 14:53:Isaias Ferrari RN)
[2017-07-19] MEDS: RINGERS SOLUTION,LACTATED 1,000 ML IV PRN (03:05)
[2017-07-19] MEDS ORDERED: LIDOCAINE 1% INJ-PF (10 MG/ML) 30 ML SDV ONE (07:40)
[2017-07-19] MEDS ORDERED: MISOPROSTOL 0.2 MG TABLET ONE (07:40)
[2017-07-19] MEDS ORDERED: OXYTOCIN/NORMAL SALINE 20 UNIT/1,000 ML RTUINJ ONE (07:40)
[2017-07-19] MEDS ORDERED: MISOPROSTOL 0.1 MG TABLET ONE (08:24)
--- NOTE | 2017-07-19 16:37 | L&D Progress Notes ---
PROGRESS NOTES Datetime Report Generated by CPN: 07/19/2017 16:37 PROGRESS NOTE Impression: Reassuring Heart Rate Procedures: Sterile Vag Exam Plan: Continue Present Management Vital Signs : Reviewed; Within Normal Limits Comment: SVE closed/HIGH/post. Pitocin infusing at 14 milliunits, patient states pain at 5/5. Seeing some spots, dizzy. FBS 67. Given popsicle and in more tilted position. Will d/c pitocin in about 1 hr. and insert Cervidil later. VAGINAL EXAM Dilatation: closed Dilatation: 2 Contractions: rare MEMBRANES Pooling: Negative Membranes: Intact Membranes: Intact Membranes: Intact FETUS A Monitoring: External US : 37.1 : 37.0 SIGNATURE SIGNATURE: ,[id number];,[id number];,[id number];,[id number] SIGNATURE: [id number];,[id number] SIGNATURE: ,[id number] SIGNATURE: 13,[id number] SIGNATURE: 14,[id number] SIGNATURE: 14,[id number] SIGNATURE: 14,[id number] SIGNATURE: 14,[id number] Assignment: Alexander Bhandari MD Signature: with User ID: [email or web address] : with User ID: [email or web address] : I personally evaluated and examined the patient in conjunction with the MLP and agree with the assessment, treatment plan and disposition.
[2017-07-19] MEDS ORDERED: CEFAZOLIN 2 GM/D5W RTU 0 GM/0 ML RTUPB IV ONE (19:36)
[2017-07-19] MEDS ORDERED: CITRIC ACID/SODIUM CITRATE ORAL SOLN 15 ML UDCUP ONE (19:36)
[2017-07-19] MEDS ORDERED: DINOPROSTONE 10 MG VAGINAL INSERT.SR ONE (20:15)
[2017-07-20] MEDS: RINGERS SOLUTION,LACTATED 1,000 ML IV PRN ×4 (01:34→18:14)
[2017-07-20] MEDS ORDERED: OXYTOCIN/NORMAL SALINE 20 UNIT/1,000 ML RTUINJ ONE (06:45)
[2017-07-20] MEDS ORDERED: NALBUPHINE HCL INJ 10 MG/1 ML AMPULE ONE (09:17)
[2017-07-20] MEDS ORDERED: NALBUPHINE HCL INJ 10 MG/1 ML AMPULE INJ ONE (09:23)
[2017-07-20 09:47] LABS: ABSOLUTE BASOPHILS # (AUTO) 0.2 10^3/uL (0.0-0.2); ABSOLUTE EOSINOPHILS # (AUTO) 0.1 10^3/uL (0.0-0.6); ABSOLUTE LYMPHOCYTES (AUTO) 1.8 10^3/uL (0.5-4.7); ABSOLUTE MONOCYTES (AUTO) 0.6 10^3/uL (0.1-1.4); ABSOLUTE NEUT (AUTO) 9.3 10^3/uL (1.7-8.2); BASOPHILS % (AUTO) 1.7 % (0-2); EOSINOPHILS % (AUTO) 0.7 % (0-6); HEMATOCRIT 35.5 % (36.0-47.0); HEMOGLOBIN 11.8 g/dL (12.0-15.5); LYMPHOCYTES % (AUTO) 14.8 % (13-45); MEAN CORPUSCULAR HEMOGLOBIN 26.8 pg (27.0-33.4); MEAN CORPUSCULAR HGB CONC 33.2 g/dL (32.0-36.0); MEAN CORPUSCULAR VOLUME 81 fl (80-97); MONOCYTES % (AUTO) 4.8 % (3-13); PLATELET COUNT 216 10^3/uL (150-450); RED CELL DISTRIBUTION WIDTH 14.2 % (11.5-14.0); TOTAL CELLS COUNTED % (AUTO) 100 %
[2017-07-20 10:02] LABS: ALANINE AMINOTRANSFERASE 26 U/L (9-52); ALBUMIN 3.2 g/dL (3.5-5.0); ALKALINE PHOSPHATASE 96 U/L (38-126); ANION GAP 12 (5-19); ASPARTATE AMINO TRANSFERASE 16 U/L (14-36); BILIRUBIN,DIRECT 0.1 mg/dL (0.0-0.4); BILIRUBIN,TOTAL 0.3 mg/dL (0.2-1.3); BLOOD UREA NITROGEN 9 mg/dL (7-20); CARBON DIOXIDE 20 mmol/L (22-30); CHLORIDE 108 mmol/L (98-107); GLUCOSE 64 mg/dL (75-110); LDH 424 U/L (313-618); POTASSIUM 4.2 mmol/L (3.6-5.0); SODIUM 140.4 mmol/L (137-145); TOTAL PROTEIN 6.8 g/dL (6.3-8.2); URIC ACID 7.7 mg/dL (2.5-6.2)
[2017-07-20 10:03] LABS: CALCIUM 9.4 mg/dL (8.4-10.2)
--- NOTE | 2017-07-20 13:18 | L&D Progress Notes ---
PROGRESS NOTES Datetime Report Generated by CPN: 07/20/2017 13:18 PROGRESS NOTE Impression: Normal Progression of Labor Procedures: Sterile Vag Exam Plan: Continue Present Management; Induction; Cervical Ripening Informed Consent Obtained: Vaginal Delivery; Risks, Benefits and Alternatives Discussed Vital Signs : Reviewed; Within Normal Limits Comment: Pt recieved Cervidil x 2 days and reportedly was closed. Cvx very anterior 1-2/50/-3. Cooks catheter placed easily. Begin pitocin. VAGINAL EXAM Dilatation: 1 Effacement: 50 Station: -3 Contractions: irreg FETUS A FHR - Baseline: 120 Monitoring: External US Variability: Moderate 6-25bpm Accelerations: 15X15 Decelerations: None FHR Category: Category I SIGNATURE Signature: with User ID: [email or web address]
--- NOTE | 2017-07-20 14:53 | L&D Progress Notes ---
PROGRESS NOTES Datetime Report Generated by CPN: 07/20/2017 14:53 PROGRESS NOTE Impression: Normal Progression of Labor Procedures: Sterile Vag Exam Plan: Continue Present Management; Induction; Cervical Ripening Informed Consent Obtained: Vaginal Delivery; Risks, Benefits and Alternatives Discussed Vital Signs : Reviewed; Within Normal Limits Comment: Cooks catheter evaluated and noted to be in vagina. Cooks catheter removed. cvx 4-5/50/BB. Pt desires epidural. When epidural placed will attempt to AROM. VAGINAL EXAM Dilatation: 4 Effacement: 50 Station: BB Contractions: irreg FETUS A FHR - Baseline: 125 Variability: Moderate 6-25bpm Accelerations: 15X15 Decelerations: None FHR Category: Category I FETUS C SIGNATURE: ,[id number];,[id number];,[id number];,[id number] SIGNATURE: ,[id number];,[id number];,[id number];,[id number] Signature: with User ID: [email or web address]
[2017-07-20] MEDS ORDERED: EPHEDRINE SULFATE INJ 50 MG/1 ML AMPULE ONE (15:56)
[2017-07-20] MEDS ORDERED: FENTANYL/BUPIVACAINE/NS/PF 200 MCG/100 ML RTUINJ EPI ONE (15:57)
[2017-07-20] MEDS ORDERED: BUPIVACAINE HCL 0.25 % INJ/PF (2.5 MG/1 ML) 30 ML VIAL ONE (15:57)
--- NOTE | 2017-07-20 16:45 | L&D Progress Notes ---
PROGRESS NOTES Datetime Report Generated by CPN: 07/20/2017 16:44 PROGRESS NOTE Impression: Normal Progression of Labor; Non-reassuring Heart Rate Procedures: Artificial ROM; Intrauterine Pressure Catheter; Scalp Electrode; Sterile Vag Exam Plan: Continue Present Management; Induction Vital Signs : Reviewed Vital Signs Comments: BP drop after epidural Comment: prolonged decel wilma to 60 with BP drop after epidural, 2 doses 5mg ephedrine given and AROM for clear fluid. IUPC and FSE placed, decel resolved. pitocin at 20mu/min. P:continue pitocin IOL. anticipate VAGINAL EXAM Dilatation: 6 Effacement: 50 Station: -2 Contractions: q2mins MEMBRANES Membranes: Ruptured Amniotic Fluid Color: Clear FETUS A FHR - Baseline: 125 Variability: Moderate 6-25bpm Accelerations: 15X15 Decelerations: Early; Prolonged FHR Category: Category II FETUS C SIGNATURE: 13,[id number];14,[id number];10,[id number];27,[id number] Assignment: Maylin Naylor MD Signature: with User ID: [email or web address] : with User ID: [email or web address]
--- NOTE | 2017-07-20 19:33 | L&D Progress Notes ---
PROGRESS NOTES Datetime Report Generated by CPN: 07/20/2017 19:32 PROGRESS NOTE Impression: Normal Progression of Labor Procedures: Sterile Vag Exam Plan: Continue Present Management; Induction Informed Consent Obtained: Vaginal Delivery; Risks, Benefits and Alternatives Discussed Vital Signs : Reviewed; Within Normal Limits Comment: cvx 7/90/0. Pt making progress. Continue with present management. Anticipate . VAGINAL EXAM Dilatation: 7 Effacement: 90 Station: 0 Contractions: q 1-2 FETUS A FHR - Baseline: 130 Monitoring: External US Variability: Moderate 6-25bpm Accelerations: 15X15 Decelerations: Early FHR Category: Category I FETUS C SIGNATURE: 10,[id number];14,[id number];13,[id number];27,[id number] Signature: with User ID: [email or web address]
[2017-07-20] MEDS ORDERED: HYDRALAZINE HCL INJ/PF 20 MG/1 ML SDV ONE (20:26)
--- NOTE | 2017-07-20 21:45 | L&D Progress Notes ---
PROGRESS NOTES Datetime Report Generated by CPN: 07/20/2017 21:45 PROGRESS NOTE Impression: Normal Progression of Labor Procedures: Sterile Vag Exam Plan: Continue Present Management; Induction Informed Consent Obtained: Vaginal Delivery; Risks, Benefits and Alternatives Discussed Vital Signs : Reviewed; Within Normal Limits Comment: pt feeling pressure b/w ctx. cvx AL/100/+1. Anticipate . Pt return to high fowlers. VAGINAL EXAM Dilatation: 9 Effacement: 100 Station: 1 FETUS A FHR - Baseline: 120 Monitoring: External US Accelerations: 15X15 Decelerations: Early; Variable FHR Category: Category I FETUS C SIGNATURE: 13,[id number];14,[id number];10,[id number];27,[id number] Signature: with User ID: [email or web address]
[2017-07-20] MEDS ORDERED: PROMETHAZINE HCL 25 MG TABLET PO PRN (23:45)
[2017-07-20] MEDS ORDERED: DIPHENHYDRAMINE HCL 25 MG CAPSULE PO PRN (23:45)
[2017-07-20] MEDS ORDERED: GLYCERIN/WITCH HAZEL LEAF 1 EACH MED..PAD TP PRN (23:45)
[2017-07-20] MEDS ORDERED: ACETAMINOPHEN WITH CODEINE #3 TABLET PO PRN ×2 (23:45)
[2017-07-20] MEDS ORDERED: PROMETHAZINE HCL 25 MG SUPP.RECT PR PRN (23:45)
[2017-07-20] MEDS ORDERED: PROMETHAZINE HCL INJ 25 MG/1 ML VIAL IV PRN (23:45)
[2017-07-20] MEDS ORDERED: PSEUDOEPHEDRINE HCL 30 MG TABLET PO PRN (23:45)
[2017-07-20] MEDS ORDERED: OXYTOCIN/NORMAL SALINE 20 UNIT/1,000 ML RTUINJ IV PRN (23:45)
[2017-07-20] MEDS ORDERED: BENZOCAINE/MENTHOL AEROSOL SPRAY 56 ML TOP PRN (23:45)
[2017-07-20] MEDS ORDERED: MEASLES,MUMPS&RUBELLA VACC/PF 0.5 ML VIAL SUBCUT PRN (23:45)
[2017-07-20] MEDS ORDERED: DIBUCAINE 1% OINTMENT 28 GM TP PRN (23:45)
[2017-07-20] MEDS ORDERED: ACETAMINOPHEN 325 MG TABLET PO PRN (23:45)
[2017-07-20] MEDS ORDERED: NA PHOS,M-B/NA PHOS,DI-BA (ADULT) 133 ML ENEMA PR PRN (23:45)
[2017-07-20] MEDS ORDERED: ZOLPIDEM TARTRATE 5 MG TABLET PO PRN (23:45)
[2017-07-20] MEDS ORDERED: MAGNESIUM HYDROXIDE SUSP 30 ML UDCUP PO PRN (23:45)
[2017-07-21] MEDS ORDERED: OXYTOCIN/NORMAL SALINE 0 UNIT/0 ML RTUINJ ONE (00:22)
[2017-07-21] MEDS ORDERED: ACETAMINOPHEN 325 MG TABLET ONE (01:44)
--- NOTE | 2017-07-21 02:00 | Delivery Summary ---
Del Sum A-C Datetime Report Generated by CPN: 07/21/2017 01:59 DELIVERY PERSONNEL DELIVERY PERSONNEL: [id number] Delivery Doctor:: Maylin Naylor MD Labor and Delivery Nurse:: Felicitas Bennett RNhousing director Nurse:: Destiny Han RN Transit Driver/TUBE WINDER HAND: Gabrielle HinesLUCILLE gregorioA MATERNAL INFORMATION Delivery Anesthesia: Epidural Medications After Delivery: Pitocin Bolus-Please Comment; Pitocin Drip 20 Units/1000ml NSS Estimated Blood Loss (ml): 150 Maternal Complications: None Provider Comments: VFI delivered in [place] presentation. Tight nuchal cord delivered through. Shoulders and body delivered without difficulty. Cord doubly clamped and cut and infant to maternal abd for NRP. Placenta delivered intact spontaneously. FF at U. Good hemostasis after repair. Apgars 8/8. Weight pending. Mother and baby stable upon provider leaving the room. LABOR SUMMARY EDC: 08/08/2017 00:00 No. Babies in Womb: 1 Attempted: No Labor Anesthesia: Epidural LABOR INFORMATION Reason for Induction: Chronic Primary/Essential HTN Onset of Labor: 07/20/2017 16:21 Complete Dilatation: 07/20/2017 22:51 Cervical Ripening Agents: Cervidil Oxytocin: Induction Group B Beta Strep: Negative Antibiotics # of Doses: 0 Steroids Given: None Reason Steroids Not Administered: Not Applicable MEMBRANES Membranes Rupture Method: Artificial Rupture of Membranes: 07/20/2017 16:22 Length of Rupture (hr): 7.18 Amniotic Fluid Color: Clear Amniotic Fluid Amount: Large Amniotic Fluid Odor: Normal STAGES OF LABOR Stage 1 hr: 6 Stage 1 min: 30 Stage 2 hr: 0 Stage 2 min: 42 Stage 3 hr: 0 Stage 3 min: 3 Total Time in Labor hr: 7 Total Time in Labor min: 15 VAGINAL DELIVERY Episiotomy: None Laceration #1: Perineal Laceration Extension #1: First Degree Laceration Repair: Yes Laceration Repair Note: 1st degree perineal laceartion repaired in usual fashion Sponge Count Correct: Yes Sharps Count Correct: Yes CSECTION DELIVERY Primary Indication: N/A Secondary Indication: N/A CSection Incidence: N/A Labor: N/A Elective: N/A CSection Incision: N/A BABY A INFORMATION Delivery Date/Time: 07/20/2017 23:33 Method of Delivery: Vaginal Born in Route : No : N/A Forceps: N/A Vacuum Extraction: N/A Shoulder Dystocia : No PRESENTATION/POSITION BABY A Presentation: Cephalic Cephalic Presentation: Vertex Vertex Position: Left Occipital Anterior Breech Presentation: N/A PLACENTA INFORMATION BABY A Placenta Delivery Time : 07/20/2017 23:36 Placenta Method of Delivery: Spontaneous Placenta Status: Delivered SCORES BABY A Heart Rate 1 min: >100 bpm Resp Effort 1 min: Good Cry Reflex Irritability 1 min: Cough or Sneeze or Pulls Away Muscle Tone 1 min: Some Flexion of Extremities Color 1 min: Body [place], Extremities Blue Resuscitation Effort 1 min: Tactile Stimulation SCORE 1 MIN: 8 Heart Rate 5 min: >100 bpm Resp Effort 5 min: Good Cry Reflex Irritability 5 min: Cough or Sneeze or Pulls Away Muscle Tone 5 min: Some Flexion of Extremities Color 5 min: Body [place], Extremities Blue Resuscitation Effort 5 min: Tactile Stimulation SCORE 5 MIN: 8 INFANT INFORMATION BABY A Gestational Age at Delivery: 37.2 Gestational Status: Early Term- 37- 38.6 Weeks Infant Outcome : Liveborn Condition : Stable Infant Sex: Female IDENTIFICATION BABY A Infant Verification Date/Time: 07/20/2017 23:39 ID Band Number: [id number] RN Verifying Infant: B Pierre, RN Additional Verifying Personnel: D Monroe, TUBE WINDER HAND/US WEIGHT/LENGTH BABY A Infant Birthweight (gm): 2430 Weight (lb): 5 Weight (oz): 6 Length (in): 18.50 Length (cm): 46.99 CORD INFORMATION BABY A No. Cord Vessels: 3 Nuchal Cord : Around Neck x1, Tight Cord Blood Taken: Yes-For Eval (Mom's Blood Type - or O+) Infant Suction: Mouth; Nose ASSESSMENT BABY A Complications: Multiple Variable Decels Skin to Skin: Yes Care By: SLattibeaudier RN Transferred To: Remains with Mother BABY B INFORMATION : N/A SIGNATURES Signature: with User ID: [email or web address] : I was personally available for consultation and serving as supervising physician for the MLP. : I personally evaluated and examined the patient in conjunction with the MLP and agree with the assessment, treatment plan and disposition.
[2017-07-21] MEDS: IBUPROFEN 800 MG TABLET PO SCH ×3 (06:14→21:23)
[2017-07-21 07:37] LABS: HEMOGLOBIN 10.8 g/dL (12.0-15.5); MEAN CORPUSCULAR HEMOGLOBIN 26.6 pg (27.0-33.4); MEAN CORPUSCULAR HGB CONC 32.9 g/dL (32.0-36.0); MEAN CORPUSCULAR VOLUME 81 fl (80-97); PLATELET COUNT 208 10^3/uL (150-450); RED BLOOD COUNT 4.08 10^6/uL (3.72-5.28); RED CELL DISTRIBUTION WIDTH 14.3 % (11.5-14.0); WHITE BLOOD COUNT 23.5 10^3/uL (4.0-10.5)
[2017-07-21] MEDS: SENNOSIDES/DOCUSATE 8.6-50 MG 1 EACH TABLET PO SCH (09:18)
[2017-07-21] MEDS: DOCUSATE SODIUM 100 MG CAPSULE PO SCH ×2 (09:18→18:40)
[2017-07-21] MEDS: PRENATAL VITAMIN W DHA CAPSULE PO SCH (09:19)
[2017-07-21] MEDS: FERROUS SULFATE 325 MG TABLET PO SCH ×2 (09:19→18:40)
[2017-07-21] MEDS: FAMOTIDINE 20 MG TABLET PO SCH ×2 (11:34→21:23)
--- NOTE | 2017-07-21 13:21 | PDOC PROGRESS REPORT ---
Subjective-OB Progress Note for:: 07/21/17 Subjective: no complaints Physical Exam (OB) Vital Signs: Temp Pulse Resp BP Pulse Ox 98.0 F 74 16 113/71 97 07/21/17 08:21 07/21/17 08:21 07/21/17 08:21 07/21/17 08:21 07/21/17 08:21 - PIH/Pre-Eclampsia Headache: Absent Epigastric Pain: No Visual Changes: No - Lochia Lochia Amount: Scant < 10 ml Lochia Color: Rubra/Red - Abdomen Description: Soft Hernia Present: No Flatus Presence: Present Fundal Description: Firm, Midline Fundal Height: u/u - u/2 - Respiratory Breath sounds: Clear - Extremities Calf: Normal Objective-Diagnostic Laboratory: 07/21/17 07:02 07/20/17 09:15 07/21/17 07:02 WBC 23.5 H RBC 4.08 Hgb 10.8 L Hct 33.0 L MCV 81 MCH 26.6 L MCHC 32.9 RDW 14.3 H Plt Count 208 Assessment and Plan(PN) - Assessment and Plan (1) Vaginal delivery Is this a current diagnosis for this admission?: Yes (2) Chronic hypertension Is this a current diagnosis for this admission?: Yes - Time Spent with Patient Time with patient: Less than 15 minutes Medications reviewed and adjusted accordingly: Yes - Disposition Anticipated Discharge: Home Within: within 48 hours
[2017-07-22] MEDS: IBUPROFEN 800 MG TABLET PO SCH (05:58)
[2017-07-22 08:42] VITALS: BP 127/85
[2017-07-22] MEDS: SENNOSIDES/DOCUSATE 8.6-50 MG 1 EACH TABLET PO SCH (09:56)
[2017-07-22] MEDS: FERROUS SULFATE 325 MG TABLET PO SCH (09:56)
[2017-07-22] MEDS: PRENATAL VITAMIN W DHA CAPSULE PO SCH (09:56)
[2017-07-22] MEDS: FAMOTIDINE 20 MG TABLET PO SCH (09:56)
[2017-07-22] MEDS: DOCUSATE SODIUM 100 MG CAPSULE PO SCH (09:56)
--- NOTE | 2017-07-22 10:21 | PDOC DISCHARGE SUMMARY ---
Final Diagnosis Discharge Date: 07/22/17 - Final Diagnosis (1) Vaginal delivery Is this a current diagnosis for this admission?: Yes (2) Chronic hypertension Is this a current diagnosis for this admission?: Yes Discharge Data - Discharge Medication Prescriptions: Docusate Sodium [Colace 100 mg Capsule] 100 mg PO BID #60 capsule Ibuprofen [Motrin 800 mg Tablet] 800 mg PO Q8 #60 tablet Home Medications: Pnv,Calcium 72/Iron/Folic Acid [ Plus Tablet] 1 tab PO DAILY 06/27/17 Docusate Sodium [Colace 100 mg Capsule] 100 mg PO BID #60 capsule 07/22/17 Ibuprofen [Motrin 800 mg Tablet] 800 mg PO Q8 #60 tablet 07/22/17 Gestational Age: 37.2 Reason(s) for Admission: Onset of Labor, PIH Procedures: NST Intrapartum Procedure(s): Spontaneous Vaginal Delivery Complication(s): Laceration-Perineal Laceration-Degree: 1st - Data Baby 1 Female at 1 minute: 8 at 5 minutes: 8 Weight: 2430 kg Home with Mother: Yes Complications: No - Diagnosis Test Laboratory: Temp Pulse Resp BP Pulse Ox 98.4 F 79 18 127/85 H 98 07/22/17 07:52 07/22/17 07:52 07/22/17 07:52 07/22/17 07:52 07/22/17 07:52 07/18/17 07/18/17 07/20/17 18:05 18:15 09:15 RBC 4.57 4.40 Hgb 12.3 11.8 L Hct 36.5 35.5 L Urine Opiates Screen NEGATIVE 07/21/17 07:02 RBC 4.08 Hgb 10.8 L Hct 33.0 L Urine Opiates Screen - Discharge information/Instructions Discharge Activity: Activity As Tolerated, No Lifting Over 10 Pounds, Pelvic Rest, No tub bath Discharge Diet: Regular Disposition: HOME, SELF-CARE Follow up with: [facility] in: 1, Weeks
== END 2017-07-22 11:43 | disposition home or self-care (01) | DRG 774 ==
LOC: LR 17:54 → 2S 07-21 02:18 → EDSTATUS 08-09 17:50
PROVIDERS: ADMIT Student in an Organized Health Care Education/Training Program; ATTEND Student in an Organized Health Care Education/Training Program
PROC: 3E0P7VZ Introduction of Hormone into Female Reproductive, Via Natural or Artificial Opening (ICD-10-PCS; 2017-07-19)
PROC: 3E033VJ Introduction of Other Hormone into Peripheral Vein, Percutaneous Approach (ICD-10-PCS; 2017-07-19)
PROC: 10E0XZZ Delivery of Products of Conception, External Approach (ICD-10-PCS; principal; 2017-07-20)
PROC: 0HQ9XZZ Repair Perineum Skin, External Approach (ICD-10-PCS; 2017-07-20)
PROC: 10H07YZ Insertion of Other Device into Products of Conception, Via Natural or Artificial Opening (ICD-10-PCS; 2017-07-20)
PROC: 4A1H7CZ Monitoring of Products of Conception, Cardiac Rate, Via Natural or Artificial Opening (ICD-10-PCS; 2017-07-20)
DX: O10.02 Pre-existing essential hypertension complicating childbirth (principal); Z68.42 Body mass index [BMI] 45.0-49.9, adult; O69.1XX0 Labor and delivery complicated by cord around neck, with compression, not applicable or unspecified; O76 Abnormality in fetal heart rate and rhythm complicating labor and delivery; O70.0 First degree perineal laceration during delivery; O99.214 Obesity complicating childbirth; E66.9 Obesity, unspecified; Z37.0 Single live birth; Z91.040 Latex allergy status; Z3A.37 37 weeks gestation of pregnancy
CPT/HCPCS: 36415; 80053; 80307; 81001; 82962; 83615; 84550; 85025; 85027; 86592; 86850; 86900; 86901; 88307; 94760; C1726; J0360; J0690; J2300; J2590; J3490

== ENCOUNTER 2017-09-28 08:46 | Day surgery (SDC) | payer BC, MEDICAID ==
[2017-09-20 12:43] LABS: HEMATOCRIT 38.7 % (36.0-47.0); HEMOGLOBIN 12.8 g/dL (12.0-15.5); MEAN CORPUSCULAR HEMOGLOBIN 25.7 pg (27.0-33.4); MEAN CORPUSCULAR VOLUME 78 fl (80-97); PLATELET COUNT 314 10^3/uL (150-450); RED BLOOD COUNT 4.97 10^6/uL (3.72-5.28); RED CELL DISTRIBUTION WIDTH 14.3 % (11.5-14.0); WHITE BLOOD COUNT 10.4 10^3/uL (4.0-10.5)
[2017-09-20 12:59] LABS: APPEARANCE,URINE CLOUDY; BILIRUBIN,URINE NEGATIVE (NEGATIVE); COLOR,URINE YELLOW; GLUCOSE, URINE NEGATIVE (NEGATIVE); KETONES,URINE NEGATIVE (NEGATIVE); LEUKOCYTE ESTERASE,URINE TRACE (NEGATIVE); NITRITE,URINE NEGATIVE (NEGATIVE); PROTEIN,URINE 100 mg/dL (NEGATIVE); URINE SPECIFIC GRAVITY 1.023; UROBILINOGEN,URINE NEGATIVE mg/dL (<2.0)
[~2017-09-28 08:46] MED LIST: ACETAMINOPHEN 325 MG TABLET PO PRN; CEFAZOLIN 2 GM/D5W RTU 2 GM/50 ML RTUPB IV PRN; DEXAMETHASONE SOD PHOSPHATE INJ 4 MG/1 ML VIAL ONE; GLYCOPYRROLATE INJ 0.4 MG/2 ML VIAL ONE; LACTATED RINGERS 1000 ML IV PRN; LIDOCAINE 0.5% INJ-PF (5 MG/ML) 50 ML SDV SUBCUT PRN; NEOSTIGMINE METHYLSULFATE 10 MG/10 ML VIAL ONE; ONDANSETRON HCL INJ/PF 4 MG/2 ML SDV ONE; ROCURONIUM BROMIDE INJ 50 MG/5 ML VIAL IV ONE; SUCCINYLCHOLINE CHLORIDE INJ 200 MG/10 ML VIAL ONE
[2017-09-28] MEDS ORDERED: FENTANYL CITRATE INJ/PF 250 MCG/5 ML AMPULE ONE (10:44)
[2017-09-28] MEDS ORDERED: MIDAZOLAM 2 MG/2 ML INJ ONE (10:44)
[2017-09-28] MEDS ORDERED: PROPOFOL INJ 200 MG/20 ML VIAL IV ONE (10:44)
[2017-09-28] MEDS ORDERED: HYDROMORPHONE HCL INJ/PF 2 MG/ML AMPULE ONE (10:45)
[2017-09-28] MEDS ORDERED: ACETAMINOPHEN 1,000 MG/100 ML RTUPB IV ONE (10:45)
[2017-09-28] MEDS ORDERED: FENTANYL CITRATE INJ/PF 100 MCG/2 ML AMPUL IV PRN ×3 (11:38)
[2017-09-28] MEDS ORDERED: MORPHINE SULFATE 10 MG/ML INJ IV PRN (11:38)
[2017-09-28] MEDS ORDERED: OXYCODONE-ACETAMINOPHEN 5-325 MG TABLET PO PRN ×4 (11:38→13:18)
[2017-09-28] MEDS ORDERED: DIPHENHYDRAMINE HCL 50 MG/ML VIAL IV PRN (11:38)
[2017-09-28] MEDS ORDERED: MEPERIDINE HCL/PF INJ 25 MG/1 ML DISP.SYRIN IV PRN (11:38)
[2017-09-28] MEDS ORDERED: PROMETHAZINE HCL INJ 25 MG/1 ML VIAL IV PRN ×2 (11:38)
--- NOTE | 2017-09-28 12:55 | Operative Report ---
Operative Report DATE OF SURGERY: 09/28/17 PREOPERATIVE DIAGNOSIS: Large left-sided dermoid cyst patient desires surgical sterilization POSTOPERATIVE DIAGNOSIS: Same OPERATION: Laparoscopy with left salpingo-oophorectomy and a right salpingectomy SURGEON: KAHLIL MEZA ANESTHESIA: GA TISSUE REMOVED OR ALTERED: Right and left fallopian tube left ovary COMPLICATIONS: None ESTIMATED BLOOD LOSS: 50 cc INTRAOPERATIVE FINDINGS: Large left dermoid PROCEDURE: Patient was taken the OR and placed in supine position. General anesthesia was induced. She is placed in the dorsolithotomy position using Leonel stirrups. Her perineum abdomen and vagina were prepared and draped in sterile fashion. Her bladder was drained with a Pichardo catheter and sponge stick was placed in the vagina for manipulation of the uterus. Incision was made at the umbilicus natural umbilical defect was identified and dilated allowing a blunt port to be placed. Laparoscopy confirmed appropriate placement. The abdomen was insufflated with CO2 gas. Suprapubic incision was made in a left lateral incision was made 5 mm ports were placed through these incisions. View of the pelvis was good the uterus is retroflexed and a large dermoid and ovary were lying on top of it. The right ovary appeared normal. The the left infundibulopelvic pedicle was identified and was noted to be well away from the ureter with the ovary were retracted medially. Using the LigaSure device this pedicle was cauterized and cut. Likewise the left utero-ovarian pedicle was cauterized and cut with the LigaSure device and the remaining tissue holding the ovary was in place was cauterized and cut with LigaSure device freeing up the ovary and the tube. This was placed to the side. Attention was then turned to the right fallopian tube which was grasped at its fimbriated end and elevated up and medially. Using LigaSure device the mesosalpinx was cauterized and cut along its length. This tube was then removed through 1 of the ports. Next through the umbilical port a large Endo Catch bag was placed in the dermoid and ovary complex were placed in the bag. The bag was brought out of the umbilical incision. The fascia at the umbilicus was enlarged to allow removal of the ovary. Also the ovary was decompressed and the liquid fat was removed to allow the ovary to squeeze through a smaller incision. No contents were spilled into the abdomen and they all remained in the Endo Catch bag. Everything was passed off the field for specimen. A port with a balloon was then placed through the umbilical incision and the abdomen insufflated. The pedicles were inspected and were hemostatic. The skein yarn dyer helper aspirator was used to remove any remaining fluid. The suprapubic and left lateral port were removed under laparoscopic visualization the umbilical port and scope were removed in unison. The gas was allowed to escape from the abdomen. The fascia at the umbilicus was closed with a running layer of 2-0 Vicryl suture. And the skin at all 3 sites closed with a 4-0 undyed Vicryl suture. The Pichardo catheter was removed at the end of the case and the sponge stick was removed as well. Patient was extubated in the OR and taken recovery room in stable condition.
[2017-09-28] MEDS ORDERED: KETOROLAC TROMETHAMINE INJ/PF 30 MG/1 ML SDV IV PRN (13:16)
[2017-09-28] MEDS ORDERED: IBUPROFEN 800 MG TABLET PO PRN (13:17)
[2017-09-28 16:27] VITALS: BP 112/66
== END 2017-09-28 16:18 | disposition home or self-care (01) ==
LOC: OROUT 08:46
PROVIDERS: ATTEND Obstetrics & Gynecology
DX: D27.1 Benign neoplasm of left ovary (principal); Z30.2 Encounter for sterilization; E28.2 Polycystic ovarian syndrome; I10 Essential (primary) hypertension; E66.9 Obesity, unspecified; Z68.41 Body mass index [BMI] 40.0-44.9, adult
CPT/HCPCS: 36415; 85027; 81025; 81001; 88302 ×2; 88307 ×2; 58661; J2250; J3490; J1100; J3010; J1170; J0330; J2405; J2704; J0131; 851